=== PATIENT | female | born 1945 | race Caucasian/White ===

== ENCOUNTER 2019-11-05 14:15 | Outpatient (CLI) | payer MEDICARE, SELFPAY ==
[2019-11-05 14:46] LABS: Add Urine Microscopic? YES; Appearance Urine Clear (Clear); Bacteria Urine Trace /hpf; Bilirubin Urine Negative (Negative); Blood Urine Negative (Negative); Color Urine Yellow (Yellow); Glucose Urine UA Negative (Negative); Ketones Urine Trace mg/dL (Negative); Leukocyte Esterase Ur 1+ LEU/UL (NEGATIVE); Mucus Urine Rare /lpf; Nitrate Urine Negative (Negative); Protein Urine Negative (Negative); RBC Urine 0-2 /hpf (0-2); Specific Grav Ur 1.017 (1.001-1.035); Squamous Epithelial Cell Urine Occasional /hpf (Few); Urobilinogen Urine Negative mg/dL (<2.0)
[2019-11-05 14:53] LABS: Alanine Aminotransferase 19 U/L (4-35); Albumin Level 4.6 g/dL (3.5-5.1); Alkaline Phosphatase 105 U/L (38-126); Aspartate Amino Transferase 33 U/L (14-36); Bilirubin,Total 0.4 mg/dL (0.2-1.3); Blood Urea Nitrogen 14 mg/dL (7-17); Calcium 9.5 mg/dL (8.4-10.2); Carbon Dioxide 30 mmol/L (22-30); Chloride 103 mmol/L (98-107); Estimated Glomerular Filt Rate > 60; Glucose 95 mg/dL (65-105); Potassium 3.9 mmol/L (3.4-5.0); Sodium 139 mmol/L (137-145)
[2019-11-05 15:11] LABS: Rheumatoid Factor < 8.6 IU/ML (<12)
== END 2019-11-05 14:16 | disposition home or self-care (01) ==
PROVIDERS: PCP Physician Assistant; Visit Provider Physician Assistant
DX: R10.9 Unspecified abdominal pain (principal); E11.9 Type 2 diabetes mellitus without complications; M25.50 Pain in unspecified joint
CPT/HCPCS: 36415; 80053; 81001; 86430; 87086; 87088

== ENCOUNTER 2020-03-09 13:06 | Outpatient (CLI) | payer MEDICARE, SELFPAY ==
--- NOTE | ~2020-03-09 | US_ITS ---
EXAMINATION: US renal BI DATE: 03/09/2020 14:18 INDICATION: Bilateral flank pain TECHNIQUE: Multiple grayscale and Doppler ultrasound images of the kidneys were obtained. COMPARISON: None. FINDINGS: The right kidney measures 9.4 0.0 x 4.2 cm. The left kidney measures 8.9 x 5.6 x 5.0 cm. Th e kidneys demonstrate normal parenchymal echogenicity. There is no hydronephrosis. The bladder is nor mal. IMPRESSION: 1. Normal kidneys without hydronephrosis. Reviewed, dictated and finalized at location A.
== END 2020-03-09 13:07 | disposition home or self-care (01) ==
LOC: ANHIMG 13:07
PROVIDERS: PCP Physician Assistant; Visit Provider Physician Assistant
DX: R10.9 Unspecified abdominal pain (principal)
CPT/HCPCS: 76775

== ENCOUNTER 2021-02-01 08:11 | Outpatient (CLI) | payer MEDICARE, SELFPAY ==
--- NOTE | ~2021-02-01 | MR_ITS ---
EXAMINATION: MR shoulder RT wo con DATE: 02/01/2021 09:00 INDICATION: Right shoulder pain TECHNIQUE: Magnetic resonance imaging (MRI) of the right shoulder was performed without intravenous c ontrast. Sequences included axial PD-weighted FS FSE, coronal oblique PD-weighted FS FSE, coronal obl ique T2-weighted FS FSE, sagittal PD-weighted FS FSE, and sagittal T1-weighted SE. COMPARISON: None. FINDINGS: Coracoacromial arch: The acromion undersurface is curved in morphology (type II). The coracoacromial ligament is normal. M ild acromioclavicular osteoarthritis. Rotator cuff: Mild supraspinatus and infraspinatus tendinopathy. There is attenuation of the distal 2.5 cm of the s upraspinatus tendon with poorly defined partial thickness tears along both the bursal and articular s ides of the tendon. No full-thickness tear defect identified. Mild to moderate subscapularis tendinop athy with small longitudinal split tear at the cephalad aspect of the tendon occurring between the po rtion of the tendon attached to the cephalad aspect of the lesser tuberosity and the bursal sided por tion of the tendon which remains contiguous with the intact transverse humeral ligament. The teres mi nor tendon is normal. There is mild atrophy of the supraspinatus muscle belly with concave cephalad m argin at the level of the supraspinatus fossa but without appreciable fatty infiltration. Biceps tendon, glenoid labrum and glenohumeral cartilage: Mild tendinopathy of the long head of the biceps tendon. The tendon appears attenuated cyst with part ial tear at the junction of the intra-articular and extra articular portion of the tendon where it is subluxed across the cephalad aspect of the medial rim of the intertubercular groove and into the sma ll subscapularis split tear defect. There is a tear at the 12:00-11:00 position of the superior gleno id labrum. Partial-thickness cartilage loss involving greater than 50% the cartilage thickness with s mooth chondral surface and without degenerative subchondral changes at the cephalad half of the gleno id. Mild subarticular cystic changes along the anteroinferior and posterior inferior rim of the gleno id. Additional diffuse mild partial-thickness cartilage loss along the humeral head with small margin al osteophytes at the anteroinferior margin of the articular surface. Fluid: Small amount of fluid in the long head biceps tendon sheath disproportionate to the physiologic amoun t of fluid in the glenohumeral joint consistent with mild bicipital tenosynovitis. No loose osteochon dral bodies. Small amount of fluid in the subacromial/subdeltoid bursa consistent with mild bursitis. Bones: Normal marrow signal. No fracture or pathologic marrow replacing process. Moderate cystic changes at the greater tuberosity likely related to chronic rotator cuff disease. IMPRESSION: 1. Mild supraspinatus and infraspinatus tendinopathy with ill-defined mild articular and bursal sided tears resulting in attenuation of the distal 2.5 cm of the supraspinatus tendon but without focal fu ll-thickness tear. 2. Mild right glenohumeral osteoarthritis with tear at the superior glenoid labrum. 3. Mild bicipital tenosynovitis and mild tendinopathy and partial thickness tear at the junction of t he intra-articular and extra-articular portion of the tendon is subluxed across the cephalad medial r im of the lesser tuberosity and into a small longitudinal split tear defect of the cephalad subscapul laura tendon. 4. Mild acromion clavicular osteoarthritis with mild underlying subacromial/subdeltoid bursitis. Reviewed, dictated and finalized at location A. IMPRESSION: 1. Mild supraspinatus and infraspinatus tendinopathy with ill-defined mild letitia cular and bursal sided tears res
== END 2021-02-01 08:12 | disposition home or self-care (01) ==
PROVIDERS: PCP Physician Assistant; Visit Provider Orthopaedic Surgery
DX: M19.011 Primary osteoarthritis, right shoulder (principal); M75.21 Bicipital tendinitis, right shoulder
CPT/HCPCS: 73221

== ENCOUNTER 2021-03-15 09:17 | Outpatient (CLI) | payer MEDICARE, SELFPAY ==
[2021-03-15 10:08] LABS: Anion Gap 7 mmol/L (8-16); Blood Urea Nitrogen 20 mg/dL (7-17); Calcium 9.7 mg/dL (8.4-10.2); Carbon Dioxide 27 mmol/L (22-30); Chloride 105 mmol/L (98-107); Estimated Glomerular Filt Rate > 60; Glucose 100 mg/dL (65-110); Potassium 5.4 mmol/L (3.4-5.0); Sodium 139 mmol/L (137-145)
== END 2021-03-15 09:18 | disposition home or self-care (01) ==
LOC: ANHSURGERY 09:23
PROVIDERS: Anesthesiology; PCP Physician Assistant; Visit Provider Orthopaedic Surgery
DX: Z01.812 Encounter for preprocedural laboratory examination (principal); E11.9 Type 2 diabetes mellitus without complications
CPT/HCPCS: 36415; 80048

== ENCOUNTER → 2021-03-17 01:45 | Outpatient (CLI) | payer MEDICARE, SELFPAY ==
[2021-03-17 19:29] LABS: SARS-CoV-2 RNA PCR Negative
== END ==
PROVIDERS: PCP Physician Assistant; Visit Provider Orthopaedic Surgery
DX: Z01.812 Encounter for preprocedural laboratory examination (principal); Z20.822 Contact with and (suspected) exposure to COVID-19
CPT/HCPCS: C9803; U0003; U0005

== ENCOUNTER 2021-03-21 00:42 | Day surgery (SDC) | payer MEDICARE, SELFPAY ==
[2021-03-13 11:00] VITALS: BMI 26.6
--- NOTE | 2021-03-20 14:46 | WPDANESEPPF ---
Anes - Initial Pre Proc Eval Procedure: Operation Date: 03/21/21 07:30 Proposed Procedures p Right Rotator Cuff Repair - Jose Juan Osorio MD Date/Time: 03/20/21 14:46 Surgeon: Jose Juan Osorio MD Pre Op Diagnosis: right rotator cuff tear Patient Data Age: 75 Gender: F Height: 1.52 m Weight: 62 kg Allergies Allergy/AdvReac Type Severity Reaction Status Date / Time amlodipine AdvReac Intermediate Weakness, Verified 03/21/21 06:28 INCREASED HR hydrochlorothiazide AdvReac Intermediate palpatations/MUSC Verified 03/21/21 06:28 SPASMS Sulfa (Sulfonamide AdvReac Intermediate Nausea and Verified 03/21/21 06:28 Antibiotics) Vomiting trimethoprim AdvReac Intermediate Nausea and Verified 03/21/21 06:28 Vomiting terazosin AdvReac Mild Nausea and Verified 03/21/21 06:28 Vomiting Home Medications Medication Instructions Recorded Confirmed Type lactobacillus combination no.4 3 3,000 mmu cells PO DAILY 07/23/19 03/21/21 History billion cell capsule lancets 31 gauge #100 each 11/30/19 02/12/21 Rx blood sugar diagnostic #100 each 04/05/20 02/12/21 Rx albuterol sulfate 90 mcg/actuation 2 puff INHALATION Q4-6H PRN #8.5 gm 04/14/20 03/21/21 Rx aerosol inhaler ibandronate 150 mg tablet 150 mg PO MONTHLY #3 tablet 05/08/20 03/21/21 Rx metformin 500 mg tablet,extended 500 mg PO BID #180 tablet 05/08/20 03/21/21 Rx release 24 hr spironolactone 25 mg tablet 12.5 mg PO BID tablet 10/24/20 03/21/21 History rabeprazole 20 mg tablet,delayed 20 mg PO BID #180 tablet 11/08/20 03/21/21 Rx release cyclobenzaprine 10 mg tablet 10 mg PO .QHS PRN #90 tablet 11/27/20 03/21/21 Rx chlorhexidine gluconate 4 % 1 applic TOPICAL ONCE #237 ml 02/14/21 03/21/21 Rx topical liquid cyanocobalamin (vitamin B-12) 1,000 mcg IM MONTHLY #1 ml 03/08/21 03/21/21 Rx 1,000 mcg/mL injection solution albuterol sulfate 2.5 mg INHALATION Q6H PRN 03/13/21 03/21/21 History benazepril 20 mg PO BID 03/13/21 03/21/21 History dicyclomine 10 mg PO QID PRN 03/13/21 03/21/21 History diphenoxylate-atropine 1 tablet PO QID PRN 03/13/21 03/21/21 History ezetimibe 10 mg PO DAILY 03/13/21 03/21/21 History magnesium oxide 800 mg PO QHS 03/13/21 03/21/21 History nebivolol [Bystolic] 4 mg PO DAILY PRN 03/13/21 03/21/21 History potassium 99 mg PO DAILY PRN 03/13/21 03/21/21 History sucralfate 30 ml PO QID 03/13/21 03/21/21 History Patient hx anesthesia problems: none Family hx anesthesia problems: none PMFSH Past Medical History Medical History (Updated 03/20/21 @ 14:48 by Rickie Stanford MD) Asthma Chronic GERD Diabetes mellitus HTN (hypertension) Hypercholesterolemia LAURA (obstructive sleep apnea) Osteoarthritis Overweight (BMI 25.0-29.9) Right shoulder pain Surgical History Surgical History H/O partial thyroidectomy Family History Family History Sibling Hypertension Family history of heart disease in male family member before age 55, Onset Age: 68 Patient's brother is Acute myocardial infarction, Onset Age: 667 Cerebrovascular accident Patient's brother is in good health Family history of Alzheimer's disease Family history of dementia Father Family history of heart disease in male family member before age 55, Onset Age: 83 Patient's father is Carcinoma of colon Mother Patient's mother is Family history of malignant melanoma, Onset Age: 52 Grandparent Cerebrovascular accident Other Diabetes mellitus Family history of alcoholism Family history of cardiovascular disease Social History Social History Smoking status: Never smoker Second hand tobacco smoke exposure: No Alcohol intake: former Alcohol use details: SOCIALLY IN PAST Substance use: never Living arrangements: alone
[2021-03-21] VITALS (12 sets, daily range): BP systolic 98–134; BP diastolic 46–92; PULSE 50–73; RESP 12–16; TEMP 36.2–36.5; O2SAT 94–100
[2021-03-21] MEDS: ACETAMINOPHEN 500 MG TABLET 1000 MG PO (06:36)
[2021-03-21] MEDS: CELECOXIB 200 MG CAPSULE PO (06:37)
[2021-03-21] MEDS: LACTATED RINGERS 1,000 ML 30 ML IV CONT ×2 (06:44→09:10)
[2021-03-21 06:50] LABS: Glucose Point of Care 98 mg/dl (65-105)
--- NOTE | 2021-03-21 06:53 | WPDANESPNB ---
Anes - Peripheral Nerve Block Date/Time: 03/21/21 06:53 I have discussed with the patient/family/POA the placement of a peripheral nerve block for post-operative pain management, including associated risks, benefits, complications, and side effects. Alternative methods of post-operative analgesia were detailed. Questions were solicited and answers provided to the satisfaction of the patient/family/POA. Time-Out: A pre-procedural Time-Out was completed immediately before starting the procedure and confirmed: Patient Identification, Site, Procedure, Patient Position and the Availability of Requisite Equipment. Clinical Indications: Acute post-operative pain management requested by the operative surgeon. Nerve Block Insertion Note Anes-nerve block: supraclavicular right Patient position: supine Skin prep: chlorhexidine Needle: 22 gauge, stimulating, insulated echogenic needle. Needle length: 80 mm Technique: ultrasound (in plane) Injectate: bupivacaine 0.5% with epi 5 mcg/ml (20cc) Observations: tolerated well Complications: none Procedure start time:: 725 Procedure end time:: 730
--- NOTE | 2021-03-21 07:23 | WPDHPUPDATE1 ---
History and Physical Update Update Date/Time: 03/21/21 07:23 History and Physical has been reviewed, including an updated exam of the patient. There are NO changes in the patient's condition. Risks, benefits, and alternatives have been discussed and questions answered. Patient agrees to proceed with procedure.
[2021-03-21] MEDS: ceFAZolin 2 GM/D5W 50 ML 2 GM/50 ML BAG IVPB (07:42)
--- NOTE | 2021-03-21 09:12 | W.PM.PROC2 ---
Procedure Note - Detailed Date of Procedure 03/21/21 Pre-op Diagnosis right rotator cuff tear Post-op Diagnosis same Procedure Performed REPAIR RIGHT ROTATOR CUFF Surgeon Jose Juan Osorio MD Anesthesia general Description of Procedure THE PATIENT WAS TAKEN TO THE OPERATING ROOM AND THEN INTUBATED AND PLACED IN THE BEACH CHAIR POSITION. THE RIGHT UPPER EXTREMITY WAS PREPPED AND DRAPED IN THE NORMAL STERILE FASHION. AN INCISION WAS MADE IN BETWEEN THE NASREEN-LATERAL ACROMION AND THE AC JOINT. THE FASCIA WAS IDENTIFIED. NEXT A MINI OPEN INCISION WAS MADE THROUGH THE DELTOID MUSCLE EXPOSING THE SUBACROMIAL SPACE. A LIMITED ACROMIOPLASTY WAS PREFORMED. THE ROTATOR CUFF WAS IDENTIFIED. THERE WAS A FULL THICKNESS TEAR. IT MEASURED APPROXIMATELY 2 CM X 2 CM. THE GREATER TUBEROSITY WAS DEBRIDED TO BLEEDING BONE. 2 ARTHREX 5.5 SUTURE ANCHORS WERE PLACED IN TO GOOD BONE AND HAD VERY GOOD BITES. COREY-JOÃO TYPE REPAIRS WERE DONE TO THE ROTATOR CUFF AND THERE WAS GOOD APPROXIMATION TO THE GREATER TUBEROSITY. THE REPAIR WAS EXCELLENT. THERE WAS NO IMPINGEMENT ON THE REPAIR FROM THE ACROMION WITH RANGE OF MOTION. THE WOUND WAS IRRIGATED WITH COPIOUS AMOUNTS OF ANTIBIOTIC SOLUTION. THE DELTOID MUSCLE WAS REPAIRED WITH #2 FIBER WIRE AND 0 VICRYL SUTURE. THE SUBCUTANEOUS LAYER WAS APPROXIMATED WITH 2-0 VICRYL. THE SKIN WAS APPROXIMATED WITH 3-0 QUIL AND DERMABOND. STERILE DRESSING WAS APPLIED. PATIENT WAS EXTUBATED. Estimated Blood Loss 20 Complications No immediate complications Condition stable Disposition PACU
[2021-03-21] MEDS: fentaNYL CITRATE INJ (*CRX) 100 MCG/2 ML VIAL 25 MCG IV PUSH (09:50)
[2021-03-21] MEDS: oxyCODONE HCL (*CRX) 5 MG TAB IR PO (10:33)
[2021-03-21] MEDS: ONDANSETRON INJ 4 MG/2 ML VIAL IV PUSH (11:15)
[2021-03-21] MEDS: SCOPOLAMINE 1.5 MG PATCH TRANSDERM (11:35)
[2021-03-22 16:16] LABS: Glucose Point of Care 119 mg/dl (65-105)
== END 2021-03-21 12:35 | disposition home or self-care (01) ==
PROVIDERS: PCP Physician Assistant; Visit Provider Orthopaedic Surgery
PROC: (CPT 23420; principal; 2021-03-21 07:30)
DX: M75.101 Unspecified rotator cuff tear or rupture of right shoulder, not specified as traumatic (principal); G89.18 Other acute postprocedural pain; I10 Essential (primary) hypertension; E11.9 Type 2 diabetes mellitus without complications; E78.00 Pure hypercholesterolemia, unspecified; J45.909 Unspecified asthma, uncomplicated; G47.33 Obstructive sleep apnea (adult) (pediatric); K21.9 Gastro-esophageal reflux disease without esophagitis; E66.9 Obesity, unspecified; Z68.27 Body mass index [BMI] 27.0-27.9, adult; Z79.51 Long term (current) use of inhaled steroids; Z79.84 Long term (current) use of oral hypoglycemic drugs
CPT/HCPCS: 23420; 64415; 36415; 80048; 82948; A9270; C9803; J0690; J1100; J2250; J2405; J2704; J2710; J3010; J7120; U0003; U0005

== ENCOUNTER → 2021-07-14 09:10 | Outpatient (CLI) | payer MEDICARE, SELFPAY ==
[2021-07-15 16:24] LABS: SARS-CoV-2 RNA PCR Positive
== END ==
PROVIDERS: PCP Physician Assistant; Visit Provider Physician Assistant
DX: U07.1 COVID-19 (principal)
CPT/HCPCS: C9803; U0003; U0005

== ENCOUNTER 2021-11-27 08:14 | Outpatient (CLI) | payer MEDICARE, SELFPAY ==
[2021-11-27 08:53] LABS: Anion Gap 6 mmol/L (8-16); Blood Urea Nitrogen 13 mg/dL (7-17); Calcium 8.4 mg/dL (8.4-10.2); Carbon Dioxide 25 mmol/L (22-30); Chloride 106 mmol/L (98-107); Estimated Glomerular Filt Rate > 60; Glucose 102 mg/dL (65-110); Potassium 4.3 mmol/L (3.4-5.0); Sodium 137 mmol/L (137-145)
== END 2021-11-27 08:15 | disposition home or self-care (01) ==
LOC: ANHSURGERY 08:19
PROVIDERS: Anesthesiology; PCP Physician Assistant; Visit Provider Orthopaedic Surgery
DX: E11.9 Type 2 diabetes mellitus without complications (principal); Z01.818 Encounter for other preprocedural examination
CPT/HCPCS: 36415; 80048

== ENCOUNTER 2021-11-30 00:22 | Day surgery (SDC) | payer MEDICARE, MEDICAID, SELFPAY ==
[2021-11-26 10:47] VITALS: BMI 30.5
--- NOTE | 2021-11-26 10:54 | PC.NURSE ---
Report to the Outpatient Waiting Room, entrance under the green pavilion located off [facility], at time _0800_ on date _11/30/21_. OR Time: _1000_. - You and your visitor will be asked a series of questions to screen for COVID 19 for your protection. - Only one visitor is allowed at this time. - The patient visitor is requested to leave or wait in car when not with patient. - A mask is required within the hospital. Patients may have clear liquids (water, carbonated beverages, clear teas, apple juice) until 3 hours prior to surgery (0700 AM) with a maximum of 20 ounces. - No food from midnight until time of surgery Take the following medications with a SIP of water the morning of surgery: _ATENOLOL, PAIN PILL & INHALER IF NEEDED_ Medications to discontinue per physician _PT STATES STOPPING ASPIRIN 11/23/21, PER ANESTHESIA VITAMINS/SUPPLEMENTS 3 DAYS PRIOR TO SURGERY, Date to take last dose 11/26/21_ Please no make-up, nail kinyarwanda, hairspray, perfume, deodorant, or body powder the day of surgery. No jewelry (including any body piercings) or valuables the day of surgery, leave them at home. Please take a shower or bath the night before, or the morning of, surgery with an antibacterial soap. Wear comfortable, loose fitting clothing. - Jewelry must be removed prior to entering the operating room. Rings and piercings that are not removed may be cut off. - The hospital will not accept responsibility for valuables. - Please leave all valuables, including medications, at home the day of surgery. If you are going home after surgery, a licensed trash truck driver must drive you home. - NO public transportation without another adult. - We recommend that an adult stay with you for 24 hours following discharge. - We also recommend that you do not drive, make important decision, drink alcoholic beverages, or take any drugs that were not prescribed by your health care provider for at least 24 hours after your discharge time. Follow any additional instructions given to you from your surgeon. If you or anyone in your household have experienced Covid symptoms in the past week, please notify your surgeon or the nurse liaison at the phone number below for possible testing. Telephone instructions given to _PT_and asked if any additional questions and then verbalized understanding. Patient advised to call surgeon office or pre surgery nurse liaison [phone] if any additional questions.
[2021-11-30] VITALS (12 sets, daily range): BP systolic 110–144; BP diastolic 57–85; PULSE 55–80; RESP 10–18; TEMP 35.9–36.2; O2SAT 93–99
[2021-11-30] MEDS: LACTATED RINGERS 1,000 ML 30 ML IV CONT ×2 (06:35→10:19)
[2021-11-30] MEDS: KETOROLAC 15 MG/ML VIAL (*BKC) IV PUSH (06:37)
[2021-11-30] MEDS: ACETAMINOPHEN 500 MG TABLET 1000 MG PO (06:37)
[2021-11-30 06:44] LABS: Glucose Point of Care 109 mg/dl (65-105)
--- NOTE | 2021-11-30 07:02 | WPDANESEPPF ---
Anes - Initial Pre Proc Eval Procedure: Operation Date: 11/30/21 07:30 Proposed Procedures p Left Arthroscopic, Rotator Cuff Repair Distal Clavicle Excision, Acromioplasty, Biceps Tenodesis - Houston Chowdary MD Date/Time: 11/30/21 07:02 Surgeon: Houston Chowdary MD Pre Op Diagnosis: left complete rotator cuff tear Patient Data Age: 76 Gender: F Height: 1.52 m Weight: 68.8 kg Allergies Allergy/AdvReac Type Severity Reaction Status Date / Time amlodipine AdvReac Intermediate Weakness, Verified 11/30/21 06:46 INCREASED HR hydrochlorothiazide AdvReac Intermediate palpatations/MUSC Verified 11/30/21 06:46 SPASMS Sulfa (Sulfonamide AdvReac Intermediate Nausea and Verified 11/30/21 06:46 Antibiotics) Vomiting trimethoprim AdvReac Intermediate Nausea and Verified 11/30/21 06:46 Vomiting terazosin AdvReac Mild Nausea and Verified 11/30/21 06:46 Vomiting Home Medications Medication Instructions Recorded Confirmed Type lancets 31 gauge #100 ea 11/30/19 11/30/21 Rx dicyclomine 10 mg capsule 10 mg PO QID PRN Diarrhea 03/13/21 11/30/21 History diphenoxylate-atropine 2.5 1 tablet PO QID PRN Diarrhea 03/13/21 11/30/21 History mg-0.025 mg tablet ezetimibe 10 mg tablet 10 mg PO DAILY 03/13/21 11/30/21 History magnesium oxide 800 mg PO QHS 03/13/21 11/30/21 History sucralfate 100 mg/mL oral 30 ml PO QID PRN Stomach Upset 03/13/21 11/30/21 History suspension blood sugar diagnostic (OneTouch #100 ea 04/30/21 11/30/21 Rx Verio test strips) benazepril 40 mg tablet 40 mg PO BID 07/26/21 11/30/21 History furosemide 40 mg tablet 20 mg PO QAM #90 tabs 07/26/21 11/30/21 Rx cyanocobalamin (vitamin B-12) 1,000 mcg IM MONTHLY #1 mL 09/06/21 11/30/21 Rx 1,000 mcg/mL injection solution cyclobenzaprine 10 mg tablet 10 mg PO .QHS PRN muscle spasm #90 09/26/21 11/30/21 Rx tabs blood-glucose meter (OneTouch See Rx Instructions .Route 10/05/21 11/30/21 Rx Verio Reflect Meter) .COMPLEX #1 ea aspirin 81 mg tablet,delayed 81 mg PO DAILY 10/16/21 11/30/21 History release (Adult Aspirin Regimen) meclizine 25 mg tablet 25 mg PO TID PRN dizziness #30 tabs 10/22/21 11/30/21 Rx metformin 500 mg tablet 500 mg PO BID 10/23/21 11/30/21 History rabeprazole 20 mg tablet,delayed See Rx Instructions .Route 11/14/21 11/30/21 Rx release (AcipHex) .COMPLEX #180 tabs hydrocodone 5 mg-acetaminophen 325 1 tablet PO Q12H PRN pain #15 tabs 11/15/21 11/30/21 Rx mg tablet albuterol sulfate 2.5 mg inhalation Q6H PRN 11/26/21 11/30/21 History Shortness Of Breath amoxicillin 875 mg-potassium 1 tablet PO Q12H 11/26/21 11/30/21 History clavulanate 125 mg tablet atenolol 25 mg tablet 25 mg PO BID 11/26/21 11/30/21 History budesonide-formoterol HFA 160 2 puff inhalation Q12H PRN 11/26/21 11/30/21 History mcg-4.5 mcg/actuation aerosol Shortness Of Breath inhaler (Symbicort) ibandronate 150 mg tablet (Boniva) 150 mg PO MONTHLY 11/26/21 11/30/21 History Laboratory Tests 11/30/21 06:34 POC Capillary Glucose 109 mg/dl H mg/dl (65-105) Patient hx anesthesia problems: none Family hx anesthesia problems: none Results Review: All pre-operative results and documents have been reviewed as part of the pre-operative evaluation. [facility] Past Medical History Medical History Asthma Chronic GERD Diabetes mellitus History of stress test (~2020) HTN (hypertension) Hypercholesterolemia LAURA (obstructive sleep apnea) Osteoarthritis Overweight (BMI 25.0-29.9) Right shoulder pain Surgical History Surgical History (Updated 11/30/21 @ 07:03 by Jamar Madrid DO) H/O partial thyroidectomy History of sleeve gastrectomy S/P rotator cuff repair Family History Family History Sibling Hypertension Family history of heart disease in male family member before age 55,
--- NOTE | 2021-11-30 07:05 | WPDANESPNB ---
Anes - Peripheral Nerve Block Date/Time: 11/30/21 07:05 I have discussed with the patient/family/POA the placement of a peripheral nerve block for post-operative pain management, including associated risks, benefits, complications, and side effects. Alternative methods of post-operative analgesia were detailed. Questions were solicited and answers provided to the satisfaction of the patient/family/POA. Time-Out: A pre-procedural Time-Out was completed immediately before starting the procedure and confirmed: Patient Identification, Site, Procedure, Patient Position and the Availability of Requisite Equipment. Clinical Indications: Acute post-operative pain management requested by the operative surgeon. Nerve Block Insertion Note Anes-nerve block: interscalene left Patient position: supine Skin prep: chlorhexidine Needle: 22 gauge, stimulating, insulated echogenic needle. Needle length: 50 mm Technique: ultrasound Injectate: bupivacaine 0.5% with epi 5 mcg/ml (30cc- no epi) Observations: tolerated well Complications: none Procedure start time:: 729 Procedure end time:: 734
--- NOTE | 2021-11-30 07:06 | WPDHPUPDATE1 ---
History and Physical Update Update Date/Time: 11/30/21 07:06 History and Physical has been reviewed, including an updated exam of the patient. There are NO changes in the patient's condition. Risks, benefits, and alternatives have been discussed and questions answered. Patient agrees to proceed with procedure.
[2021-11-30] MEDS: ceFAZolin 2 GM/D5W 50 ML 2 GM/50 ML BAG IVPB (07:33)
[2021-11-30 12:11] LABS: Glucose Point of Care 115 mg/dl (65-105)
--- NOTE | 2021-11-30 13:27 | SUR.PHASEII ---
1326- Call to Dr. Grigsby patient experiencing nausea at this time and IV discontinued for discharge home. Per Dr. Grigsby can give zofran 4MG sublingual once. Orders placed and will administer. See MAR.
[2021-11-30] MEDS: ONDANSETRON HCL ODT 4 MG TABLET PO (13:30)
--- NOTE | 2021-11-30 13:35 | SUR.PHASEII ---
8813- Call to Dr. Chowdary due to patient experiencing nausea and patient requesting zofran prescription be sent to her pharmacy for use at home. Per Dr. Chowdary he will place orders for patient.
--- NOTE | 2021-11-30 16:05 | P.OP_ITS ---
Procedure Note - Detailed Date of Procedure 11/30/21 Pre-op Diagnosis Left shoulder 1. Rotator cuff tear, full thickness 2. Subacromial impingement 3. Biceps tendinosis 4. A/C joint arthritis Post-op Diagnosis Same (1. Rotator cuff tear 2. Subacromial impingement 3. Biceps tendinosis 4. Degenerative labral tear) Procedure Performed Right shoulder 1. Arthroscopic rotator cuff repair 2. Arthroscopic subacromial decompression 3. Arthroscopic biceps tenodesis 4. Arthroscopic distal clavicle excision Surgeon Houston Chowdary MD Head Strength And Conditioning Coach Radha Nieves PA-C Anesthesia General and Regional ( interscalene block) Description of Procedure Preoperative antibiotics were given. An interscalene block was administered in the preoperative area. The patient was bought brought to the operating room. A general anesthetic was administered. The patient was carefully positioned in t he beach chair position. The head and neck were carefully positioned. The non operative extremity was also carefully positioned. The shoulder was prepped and draped in the usual sterile fashion. Examination was performed. Standard posterior and anterior arthroscopic portals were established. Inflow achieved with the arthroscopic pump using saline and epinephrine. The glenohumeral joint was carefully inspected. The glenohumeral joint showed mild degenerative changes primarily on the humerus. The subscapularis was intact. There was a small to medium-sized, non retracted tear of the supraspinatus. The biceps had partial rupture. The biceps was released for later tenodesis. Minimal gentle chondroplasty on the humerus. Attention was turned to the subacromial space. A complete bursectomy was performed. The rotator cuff and footprint were lightly debrided. A modest acromioplasty was performed. The tear configuration was carefully assessed. At this point, 2 tunnels were created at the rotator cuff. The ArthroTunneler technique was utilized. Three sutures were passed through each tunnel. All sutures were then passed through the cuff tissue. The sutures were tied arthroscopically. Attention was then turned to the biceps tendon. The sheath was opened and cauterized. The floor was roughened with the arthroscopic rasp. A tunnel was created with the tunneling device. Two Orthocord sutures were used for repair. The sutures were looped around the biceps then the locking loop suture passed through the tendon. The repair was quite olson. Attention was then turned to the distal clavicle which was excised through a separate incision using the arthroscopic bur. Approximately 10 mm of bone was resected. The arthroscopic instruments were removed. The wounds were closed with 3-0 Monocryl subcuticular suture and steri strips. There were no complications. A sling was applied and the patient brought to the recovery room. Physician bilingual executive assistant, Radha Nieves PA-C, required for surgery; including patient positioning, draping, arthroscopic camera operation, maintaining instrument position, suture retrieval, wound closure, and dressing and sling placement. Estimated Blood Loss 20 Pathology None sent Complications No immediate complications Condition Stable Disposition PACU [facility] Billing Surgery - Charge Forward: Surgery Billing
== END 2021-11-30 13:39 | disposition home or self-care (01) ==
PROVIDERS: PCP Physician Assistant; Visit Provider Orthopaedic Surgery
PROC: (CPT 29805; principal; 2021-11-30 07:30)
DX: M75.122 Complete rotator cuff tear or rupture of left shoulder, not specified as traumatic (principal); M75.42 Impingement syndrome of left shoulder; M75.82 Other shoulder lesions, left shoulder; M75.22 Bicipital tendinitis, left shoulder; G89.18 Other acute postprocedural pain; J45.909 Unspecified asthma, uncomplicated; E11.9 Type 2 diabetes mellitus without complications; K21.9 Gastro-esophageal reflux disease without esophagitis; I10 Essential (primary) hypertension; E78.00 Pure hypercholesterolemia, unspecified; G47.33 Obstructive sleep apnea (adult) (pediatric); Z98.84 Bariatric surgery status; Z79.84 Long term (current) use of oral hypoglycemic drugs; Z79.82 Long term (current) use of aspirin; Z79.51 Long term (current) use of inhaled steroids
CPT/HCPCS: 29827; 29828; 29826; 29824; 64415; 36415; 80048; 82948; A4565; A9270; J0690; J1100; J1885; J2405; J2704; J7120

== ENCOUNTER 2022-01-04 11:45 | Emergency (ER) | payer MEDICARE, MEDICAID, SELFPAY ==
[2022-01-04] VITALS (17 sets, daily range): BP systolic 115–150; BP diastolic 59–80; PULSE 61–72; RESP 16–22; TEMP 36.2; O2SAT 93–98
--- NOTE | ~2022-01-04 | CT_ITS ---
EXAMINATION: CT cervical spine wo con DATE: 01/04/2022 12:58 INDICATION: Trauma. Generalized neck pain for 2 days. TECHNIQUE: Computed tomography (CT) of the cervical spine was performed without intravenous contrast. Automated exposure control and iterative reconstruction technique were employed. Exam dose: 335.55 mGy-cm total exam DLP. COMPARISON: 08/11/2012 MR cervical spine FINDINGS: There is levoscoliosis of the cervical spine. C1 and C2 are normally aligned and the odontoid process is intact. No fracture or dislocation or lock ed facet or prevertebral soft tissue swelling. There is mild degenerative disc disease and minimal retrolisthesis at C4-5. There is moderately severe degenerative disc disease at C5-6. There is moderate degenerative disc dis ease at C6-7. There is slight anterolisthesis at C7-T1. There is degenerative change of the apophyseal joints throughout the cervical spine. There is uncovertebral joint spurring of the mid and lower cervical spine, most prominent on the righ t at C4-5 and bilaterally at C5-6. Incidentally noted is patchy groundglass density in the upper lung zones. Right thyroid goiter. No cervical mass lesion or lymphadenopathy is detected. Prominent soft tissue thickening of the left sphenoid sinus, patchy soft tissue thickening of the eth moid air cells. IMPRESSION: Levoscoliosis Cervical spondylosis No fracture or dislocation or locked facet Reviewed, dictated and finalized at Location A. Reviewed, dictated and finalized at location B.
--- NOTE | ~2022-01-04 | XR_ITS ---
EXAMINATION: XR chest 2V DATE: 01/04/2022 13:03 INDICATION: Right-sided chest pain TECHNIQUE: AP and lateral views of the chest are obtained. COMPARISON: 10/23/2015 FINDINGS: The lungs are free of acute opacities. No pleural effusion or pneumothorax. The cardiomedia stinal silhouette is normal. There is severe thoracic spondylosis. IMPRESSION: 1. No acute cardiopulmonary abnormality. Reviewed, dictated and finalized at location F.
--- NOTE | ~2022-01-04 | CT_ITS ---
EXAMINATION: CTA chest PE protocol DATE: 01/04/2022 15:25 INDICATION: Chest pain with deep inspiration. Right-sided chest and arm pain TECHNIQUE: Computed tomography angiography (CTA) of the chest was performed with 100 mL Omnipaque-350 intravenous contrast timed to evaluate the pulmonary arteries. Coronal maximum intensity projection 3D-reconstructions were created by the technologist. Automated exposure control and iterative reconst ruction technique were employed. Exam dose: 517.38 mGy-cm total exam DLP. COMPARISON: 01/04/2022 AP and lateral chest FINDINGS: There is diagnostic contrast enhancement of the pulmonary arteries and no evidence of pulmo nary embolus. There is a in the right ventricle and pulmonary outflow tract. No thoracic aortic aneurysm or dissection. There is thoracic aortic calcification. Normal heart size. No pericardial effusion. No pleural effusion. No hilar or mediastinal mass lesion or lymphadenopathy. Prominent discoid atelectasis and/or scarring is noted in the lower lobes, right greater than left an d to a lesser extent the lingula. No pleural effusion. Status post cholecystectomy. Normal morphology of the adrenal glands. No suspicious osteolytic or osteoblastic lesions. IMPRESSION: No evidence of pulmonary embolus Area in the right ventricle and pulmonary outflow tract Prominent discoid atelectasis and/or scarring in the lower lobes and to a lesser extent lingula Reviewed, dictated and finalized at Location [facility]. Reviewed, dictated and finalized at location A. IMPRESSION: No evidence of pulmonary embolus Area in the right ventricle and pulmonary outflow tract Prominent discoid atelectasis and/or scarring in the lower lobes and to a lesse r extent lingula
--- NOTE | 2022-01-04 11:51 | ECG_ITS ---
Measurements Intervals [place] Rate: 68 P: 33 IA: 197 QRS: 28 QRSD: 92 T: 9 QT: 417 QTc: 445 Interpretive Statements SINUS RHYTHM MINIMAL Q WAVES- INFERIOR LEADS BASELINE ARTIFACT- I, III, AVL BORDERLINE ECG Electronically Signed On 01-04-2022 12:01:41 CDT by Hal Campbell D.O.
[2022-01-04 12:15] LABS: Basophils Percent Auto 0.5 % (0.2-1.2); Eosinophils Absolute Auto 0.1 K/mm3 (0-0.3); Eosinophils Percent Auto 2.1 % (0-4.4); Hematocrit 37.9 % (37.0-47.0); Hemoglobin 11.7 g/dL (12.0-15.0); Immature Granulocyte Absolute 0.02 K/mm3 (0.00-0.031); Immature Granulocyte Percent A 0.3 % (0-0.5); Lymphocytes Absolute Auto 1.73 K/mm3 (0.9-3.2); Mean Corpuscular HGB Conc 30.9 g/dl (32-36); Mean Corpuscular Hemoglobin 27.3 pg (26-34); Mean Corpuscular Volume 88.3 fl (80-100); Mean Platelet Volume 10.2 fl (7.4-10.4); Monocytes Absolute Auto 0.5 K/mm3 (0.1-0.6); Monocytes Percent Auto 7.7 % (2.6-8.5); Neutrophils Absolute Auto 4.2 K/mm3 (1.3-6.7); Neutrophils Percent Auto 63.4 % (45.5-73.1); Platelet Count Result 238 k/mm3 (150-375); Red Blood Count 4.29 M/mm3 (4.2-5.4); Red Cell Distribution Width 14.4 % (11.5-14.5); White Blood Count 6.7 K/mm3 (4.5-10.0)
[2022-01-04 12:26] LABS: Alanine Aminotransferase 18 U/L (6-35); Alkaline Phosphatase 108 U/L (38-126); Anion Gap 7 mmol/L (8-16); Aspartate Amino Transferase 30 U/L (14-36); Bilirubin,Total 0.3 mg/dL (0.2-1.3); Blood Urea Nitrogen 22 mg/dL (7-17); Calcium 8.6 mg/dL (8.4-10.2); Carbon Dioxide 29 mmol/L (22-30); Chloride 103 mmol/L (98-107); Estimated Glomerular Filt Rate > 60; Glucose 147 mg/dL (65-110); Lipase 45 U/L (23-300); Potassium 3.7 mmol/L (3.4-5.0); Prothrombin Time 13.2 Seconds (11.1-14.7); Sodium 139 mmol/L (137-145)
[2022-01-04 12:27] LABS: Partial Thromboplastin Time 27.4 SECONDS (22.3-36.8)
[2022-01-04 12:38] LABS: Troponin I < 0.012 ng/mL (0.000-0.034)
[2022-01-04] MEDS: KETOROLAC 15 MG/ML VIAL (*BKC) IV PUSH (12:43)
[2022-01-04] MEDS: diazePAM INJ (*CRX) 10 MG/2 ML SYRINGE 5 MG IV PUSH (12:44)
--- NOTE | 2022-01-04 13:18 | ED.GENADULT ---
HPI - General Adult General Chief complaint: Chest Pain Stated complaint: pain in neck after seeing chiropractornhung Time Seen by Provider: 01/04/22 12:04 History of Present Illness HPI narrative: Patient is a 76-year-old female who presents ER with pain in her neck. Began 2 days ago. Bilateral. Radiates into her chest. Worse with any type of movement of her head to the left right or up and down. Was seen by a chiropractor yesterday and received neck manipulation which did not improve her symptoms. She also reports that she was told she had 8 ribs out on the right side and that they replaced all of them. Patient denies any fall or injury. No fevers or chills or sweats. No numbness or tingling to the arms or legs. Patient tried taking hydrocodone without improvement. Related Data Home Medications Medication Instructions Recorded Confirmed dicyclomine 10 mg capsule 10 mg PO QID PRN Diarrhea 03/13/21 12/26/21 diphenoxylate-atropine 2.5 1 tablet PO QID PRN Diarrhea 03/13/21 12/26/21 mg-0.025 mg tablet ezetimibe 10 mg tablet 10 mg PO DAILY 03/13/21 12/26/21 magnesium oxide 800 mg PO QHS 03/13/21 12/26/21 sucralfate 100 mg/mL oral 30 ml PO QID PRN Stomach Upset 03/13/21 12/26/21 suspension benazepril 40 mg tablet 40 mg PO BID 07/26/21 12/26/21 aspirin 81 mg tablet,delayed 81 mg PO DAILY 10/16/21 12/26/21 release (Adult Aspirin Regimen) metformin 500 mg tablet 500 mg PO BID 10/23/21 12/26/21 albuterol sulfate 2.5 mg/3 mL 2.5 mg inhalation Q6H PRN 11/26/21 12/26/21 (0.083 %) solution for nebulization Shortness Of Breath budesonide-formoterol HFA 160 2 puff inhalation Q12H PRN 11/26/21 12/26/21 mcg-4.5 mcg/actuation aerosol Shortness Of Breath inhaler (Symbicort) ibandronate 150 mg tablet (Boniva) 150 mg PO MONTHLY 11/26/21 12/26/21 Allergies Allergy/AdvReac Type Severity Reaction Status Date / Time amlodipine AdvReac Intermediate Weakness, Verified 12/26/21 13:11 INCREASED HR hydrochlorothiazide AdvReac Intermediate palpatations/MUSC Verified 12/26/21 13:11 SPASMS Sulfa (Sulfonamide AdvReac Intermediate Nausea and Verified 12/26/21 13:11 Antibiotics) Vomiting trimethoprim AdvReac Intermediate Nausea and Verified 12/26/21 13:11 Vomiting terazosin AdvReac Mild Nausea and Verified 12/26/21 13:11 Vomiting Review of Systems Review of Systems: All systems reviewed & are unremarkable except as noted in HPI and below Constitutional: Constitutional: Denies chills and Denies fever(s) ENT: Denies nasal congestion and Denies sore throat Cardiovascular: Cardiovascular: Reports chest pain, Denies rapid heart rate and Reports radiating jaw, neck or arm pain Respiratory: Respiratory: Denies chest congestion, Denies cough, Denies dyspnea and Denies wheezing Gastrointestinal: Gastrointestinal: Denies abdominal pain, Denies nausea and Denies vomiting Musculoskeletal: Musculoskeletal: Reports arthralgias (left shoulder from recent surgery), Denies joint swelling and Reports muscle cramps Integumentary/Breasts: Skin/Breast: Denies erythema, Denies rash and Denies skin ulcer Neurologic: Denies syncope, Reports headache(s), Denies focal weakness and Denies numbness PMFSH Past Medical History Medical History (Updated 01/04/22 @ 16:06 by Malcom Gibson MD) Asthma Chronic GERD Diabetes mellitus Essential (primary) hypertension History of stress test (~2020) HTN (hypertension) Hypercholesterolemia LAURA (obstructive sleep apnea) Osteoarthritis Overweight (BMI 25.0-29.9) Right shoulder pain Tendinitis of left rotator cuff Thyroid nodule Surgical History Surgical History H/O partial thyroidectomy History of sleeve gastrectomy S/P rotator cuff repair Family History Family History Sibling Hypertension Family history of heart disease in male family member before
[2022-01-04 15:17] LABS: Troponin I < 0.012 ng/mL (0.000-0.034)
[2022-01-04] MEDS: MORPHINE SULFATE (*CRX) 4 MG/ML INJ IV PUSH (15:50)
--- NOTE | 2022-01-05 02:27 | PC.NURSE ---
LWBS APPROX [id number]
== END 2022-01-04 16:44 | disposition home or self-care (01) ==
PROVIDERS: Emergency Medicine; Emergency Provider Emergency Medicine; PCP Physician Assistant
DX: M62.830 Muscle spasm of back (principal); R07.89 Other chest pain; I10 Essential (primary) hypertension; E78.00 Pure hypercholesterolemia, unspecified; E11.9 Type 2 diabetes mellitus without complications; J45.909 Unspecified asthma, uncomplicated
CPT/HCPCS: 36415; 71046; 71275; 72125; 80053; 83690; 84484; 85025; 85610; 85730; 93005; 96374; 96375; 99284; J1885; J2270; J3360; Q9967

== ENCOUNTER 2022-03-04 11:07 | Outpatient (CLI) | payer MEDICARE, MEDICAID, SELFPAY ==
[2022-03-04 12:26] LABS: Appearance Urine Slightly Cloudy (Clear); Color Urine Dark Orange (Yellow)
[2022-03-04 12:27] LABS: Add Urine Microscopic? YES
[2022-03-04 12:31] LABS: RBC Urine 21-50 /hpf (0-2); WBC Clumps Urine Present /HPF; WBC Urine >75 /hpf (0-3)
== END 2022-03-04 11:08 | disposition home or self-care (01) ==
PROVIDERS: PCP Internal Medicine; Visit Provider Physician Assistant
DX: R30.0 Dysuria (principal)
CPT/HCPCS: 81001; 87077; 87086; 87186

== ENCOUNTER 2022-03-19 17:00 | Outpatient (CLI) | payer MEDICARE, MEDICAID, SELFPAY ==
--- NOTE | ~2022-03-19 | DEXA_ITS ---
Bone Density Report Name: KAVYA LICEA Age: 76 Sex: Female Ethnicity: White Date of : 1945 Indication: postmenopausal; screening for osteoporosis; height loss; inflammatory bowel disease; asthma or emphysema; hysterectomy; Referring Provider: ELDER BOWEN Study: Bone densitometry was performed. Exam Date: March 19, 2022 Accession number: [id number] Bone Density: Region BMD T-score Z-score Classification AP Spine(L2, L3, L4) 0.780 -2.7 -0.2 Osteoporosis Femoral Neck (Left) 0.580 -2.4 -0.4 Osteopenia Total Hip (Left) 0.745 -1.6 0.2 Osteopenia Femoral Neck (Right) 0.645 -1.8 0.2 Osteopenia Total Hip (Right) 0.813 -1.1 0.7 Osteopenia Total Hip Mean 0.779 -1.4 0.5 Osteopenia World Health Organization criteria for BMD impression classify patients as: Normal (T-score at or above -1.0), Osteopenia (T-score between -1.0 and -2.5), or Osteoporosis (T-score at or below -2.5). 10-year Fracture Risk: FRAX not reported because: Some T-score for Spine Total or Hip Total or Femoral Neck at or below -2.5 Treated for osteoporosis Clinical Information Provided by Patient: Is being treated for osteoporosis Has used the following medications: Boniva (i.e. ibandronate), Vitamin D, Calcium Has the following medical conditions: Asthma or Emphysema, Inflammatory bowel diseases, Hysterectomy, thyroidectomy Patient maximum height was 62 Menopause Age: 39 No regular weight bearing exercise Drinks caffeinated beverages Onset of menses at age 14 Number of children 6 Impression: The patient has osteoporosis, based on the Total Spine T-score. Discussion: It is important to ask patients whether they are taking their medications and to encourage continued and appropriate compliance with their osteoporosis therapies to reduce fracture risk. It is also important to review their risk factors and encourage appropriate calcium and vitamin D intakes, exercise, fall prevention and other lifestyle measures. Follow-Up: Consider a repeat BMD and Vertebral Fracture Assessment (VFA) exam in 2 years or sooner if medically necessary, to reassess this patient's status. Reported by: KASIE on 03/19/2022 5:22:00 PM. Reviewed, dictated and finalized at location ADiamante BUNN
== END 2022-03-19 17:01 | disposition home or self-care (01) ==
PROVIDERS: PCP Internal Medicine; Visit Provider Internal Medicine
DX: M81.0 Age-related osteoporosis without current pathological fracture (principal); M85.852 Other specified disorders of bone density and structure, left thigh; M85.851 Other specified disorders of bone density and structure, right thigh
CPT/HCPCS: 77080

== ENCOUNTER 2022-04-09 06:52 | Emergency (ER) | payer MEDICARE, MEDICAID, SELFPAY ==
--- NOTE | ~2022-04-09 | XR_ITS ---
EXAMINATION: XR chest 2V DATE: 04/09/2022 07:55 INDICATION: Chest pain TECHNIQUE: frontal and lateral views of the chest were obtained. COMPARISON: Chest radiograph and CT dated 01/04/2022 FINDINGS: Small calcified nodule at the left lung base and calcified left hilar and mediastinal lymph nodes con sistent with old granulomatous disease. The lungs are otherwise clear with no focal airspace opacitie s, pulmonary edema, pleural effusion or pneumothorax. The cardiomediastinal silhouette is normal. Pos t cystectomy clips in right upper quadrant. Mild thoracic kyphosis with chronic minimal to mild anter ior wedging of a few mid to lower thoracic vertebral bodies. Distal left clavicle excision. IMPRESSION: 1. No acute cardiopulmonary disease. Reviewed, dictated and finalized at location A.
[2022-04-09 06:53] VITALS: BP 154/65; PULSE 59; RESP 18; TEMP 36.7; O2SAT 97
--- NOTE | 2022-04-09 07:02 | ECG_ITS ---
Measurements Intervals [place] Rate: 59 P: 44 MS: 185 QRS: 37 QRSD: 90 T: 30 QT: 436 QTc: 434 Interpretive Statements SINUS BRADYCARDIA WITH FREQUENT VENTRICULAR PREMATURE COMPLEXES ABNORMAL ECG BORDERLINE ECG COMPARED TO ECG 01/04/2022 11:59:34 HEART RATE HAS DECREASED Electronically Signed On 04-09-2022 17:29:34 CDT by Alfred Calvillo M.D.
--- NOTE | 2022-04-09 07:03 | PC.NURSE ---
EMS gave 234mg ASA en route. Pt states shes had this pain before and was diagnosed with inflammation .
[2022-04-09 07:35] LABS: Basophils Percent Auto 0.6 % (0.2-1.2); Eosinophils Absolute Auto 0.1 K/mm3 (0-0.3); Eosinophils Percent Auto 1.6 % (0-4.4); Hematocrit 34.4 % (37.0-47.0); Hemoglobin 11.4 g/dL (12.0-15.0); Immature Granulocyte Absolute 0.01 K/mm3 (0.00-0.031); Immature Granulocyte Percent A 0.2 % (0-0.5); Lymphocytes Absolute Auto 1.77 K/mm3 (0.9-3.2); Lymphocytes Percent Auto 27.6 % (18.3-44.2); Mean Corpuscular HGB Conc 33.1 g/dl (32-36); Mean Corpuscular Hemoglobin 29.2 pg (26-34); Mean Corpuscular Volume 88.2 fl (80-100); Mean Platelet Volume 9.6 fl (7.4-10.4); Monocytes Absolute Auto 0.4 K/mm3 (0.1-0.6); Monocytes Percent Auto 5.9 % (2.6-8.5); Neutrophils Absolute Auto 4.1 K/mm3 (1.3-6.7); Neutrophils Percent Auto 64.1 % (45.5-73.1); Platelet Count Result 203 k/mm3 (150-375); Red Cell Distribution Width 16.9 % (11.5-14.5); White Blood Count 6.4 K/mm3 (4.5-10.0)
[2022-04-09 07:48] LABS: Alanine Aminotransferase 27 U/L (6-35); Albumin Level 3.9 g/dL (3.5-5.1); Alkaline Phosphatase 85 U/L (38-126); Anion Gap 7 mmol/L (8-16); Aspartate Amino Transferase 32 U/L (14-36); Bilirubin,Total 0.3 mg/dL (0.2-1.3); Blood Urea Nitrogen 16 mg/dL (7-17); Calcium 9.1 mg/dL (8.4-10.2); Carbon Dioxide 25 mmol/L (22-30); Chloride 105 mmol/L (98-107); Estimated CRCL calculation 60 ml/min; Estimated Glomerular Filt Rate > 60; Glucose 117 mg/dL (65-110); Lipase 83 U/L (23-300); Sodium 137 mmol/L (137-145)
[2022-04-09] MEDS: KETOROLAC 30 MG/ML VIAL (*BKC) (07:56)
[2022-04-09 07:59] LABS: Troponin I < 0.012 ng/mL (0.000-0.034)
--- NOTE | 2022-04-09 08:05 | ED.CHESTPAIN ---
HPI - Chest Pain General Chief Complaint: Chest Pain Stated Complaint: cp and shoulder pain Time Seen by Provider: 04/09/22 07:02 History of Present Illness HPI narrative: Patient is a 76-year-old female who presents ER with aching chest and back pain. Ongoing over the last 2 weeks but worsening over the last 4 days. No exertional chest pain or shortness of breath. No runny nose or sore throat or productive cough. Denies fevers or chills. Patient was seen for similar symptoms several months back. Pain worsens with palpation and physical movements like leaning forward. She has not tried any oral pain medication at home. Outside medical record does not show recent prescriptions for pain medication. Related Data Home Medications Medication Instructions Recorded Confirmed dicyclomine 10 mg capsule 10 mg PO QID PRN Diarrhea 03/13/21 02/27/22 diphenoxylate-atropine 2.5 1 tablet PO QID PRN Diarrhea 03/13/21 02/27/22 mg-0.025 mg tablet ezetimibe 10 mg tablet 10 mg PO DAILY 03/13/21 02/27/22 magnesium oxide 800 mg PO QHS 03/13/21 02/27/22 sucralfate 100 mg/mL oral 30 ml PO QID PRN Stomach Upset 03/13/21 02/27/22 suspension aspirin 81 mg tablet,delayed 81 mg PO DAILY 10/16/21 02/27/22 release (Adult Aspirin Regimen) albuterol sulfate 2.5 mg/3 mL 2.5 mg inhalation Q6H PRN 11/26/21 02/27/22 (0.083 %) solution for nebulization Shortness Of Breath budesonide-formoterol HFA 160 2 puff inhalation Q12H PRN 11/26/21 02/27/22 mcg-4.5 mcg/actuation aerosol Shortness Of Breath inhaler (Symbicort) ibandronate 150 mg tablet (Boniva) 150 mg PO MONTHLY 11/26/21 02/27/22 Allergies Allergy/AdvReac Type Severity Reaction Status Date / Time amlodipine AdvReac Intermediate Weakness, Verified 04/09/22 07:02 INCREASED HR hydrochlorothiazide AdvReac Intermediate palpatations/MUSC Verified 04/09/22 07:02 SPASMS Sulfa (Sulfonamide AdvReac Intermediate Nausea and Verified 04/09/22 07:02 Antibiotics) Vomiting trimethoprim AdvReac Intermediate Nausea and Verified 04/09/22 07:02 Vomiting terazosin AdvReac Mild Nausea and Verified 04/09/22 07:02 Vomiting Review of Systems Review of Systems: All systems reviewed & are unremarkable except as noted in HPI and below Constitutional: Constitutional: Denies chills and Denies fever(s) Cardiovascular: Cardiovascular: Reports chest pain, Denies rapid heart rate and Denies radiating jaw, neck or arm pain Respiratory: Respiratory: Denies cough, Denies dyspnea and Denies wheezing Gastrointestinal: Gastrointestinal: Denies nausea and Denies vomiting Musculoskeletal: Musculoskeletal: Reports back pain, Reports myalgias, Denies arthralgias and Denies joint swelling Integumentary/Breasts: Skin/Breast: Denies erythema and Denies rash PMFSH Past Medical History Medical History (Updated 04/09/22 @ 09:29 by Malcom Gibson MD) Asthma Chronic GERD Diabetes mellitus Essential (primary) hypertension History of stress test (~2020) HTN (hypertension) Hypercholesterolemia LAURA (obstructive sleep apnea) Osteoarthritis Overweight (BMI 25.0-29.9) Right shoulder pain Tendinitis of left rotator cuff Thyroid nodule Surgical History Surgical History (Updated 02/27/22 @ 14:00 by Beatriz Neri) H/O partial thyroidectomy History of repair of left rotator cuff (~11/30/21) (Arthroscopic) w/Subacromial Decompression; Biceps Tenodesis, Distal Clavicle Excision History of sleeve gastrectomy Family History Family History Sibling Hypertension Family history of heart disease in male family member before age 55, Onset Age: 68 Patient's brother is Acute myocardial infarction, Onset Age: 667 Cerebrovascular accident Patient's brother is in good health Family history of Alzheimer's disease Family history of dementia Father Family history of heart disease in male family member before age 55, Onset Ag
[2022-04-09 08:41] LABS: INR 1.1; Prothrombin Time 13.4 Seconds (11.1-14.7)
[2022-04-09 08:55] LABS: Partial Thromboplastin Time 27.5 SECONDS (22.3-36.8)
--- NOTE | 2022-04-09 09:15 | PC.NURSE ---
pt sleeping comfortably in stretcher.
[2022-04-09 09:37] VITALS: BP 140/52; PULSE 61; RESP 16; TEMP 36.8; O2SAT 99
== END 2022-04-09 09:39 | disposition home or self-care (01) ==
PROVIDERS: Emergency Provider Emergency Medicine; PCP Internal Medicine
DX: R07.89 Other chest pain (principal); I10 Essential (primary) hypertension; J45.909 Unspecified asthma, uncomplicated; E11.9 Type 2 diabetes mellitus without complications; K21.9 Gastro-esophageal reflux disease without esophagitis; E78.00 Pure hypercholesterolemia, unspecified; G47.33 Obstructive sleep apnea (adult) (pediatric); Z79.51 Long term (current) use of inhaled steroids; Z79.82 Long term (current) use of aspirin; Z79.83 Long term (current) use of bisphosphonates; Z98.84 Bariatric surgery status
CPT/HCPCS: 36415; 71046; 80053; 83690; 84484; 85025; 85610; 85730; 93005; 96374; 99284; J1885

== ENCOUNTER 2022-06-21 08:12 | Outpatient (CLI) | payer MEDICARE, MEDICAID, SELFPAY ==
--- NOTE | ~2022-06-21 | XR_ITS ---
Left Shoulder Technique: AP and scapular Y views were obtained. Clinical History: Pain COMPARISON: 02/27/2022 and 01/15/2021 Findings: No fracture or dislocation is seen. Osseous alignment is anatomic. The glenohumeral and acr omioclavicular joint spaces are unchanged from most recent prior exam. Suggestion of interval surgery /acromioclavicular decompression since 01/15/2021. Soft tissues are unremarkable. Impression: No acute abnormality. No change since 02/27/2022. Suggestion of surgical acromioclavicular decompressi on since 01/15/2021. Correlate with any surgical history. Reviewed, dictated and finalized at location [] TOP PUBLISHER Impression: No acute abnormality. No change since 02/27/2022. Suggestion of surgical acromio clavicular decompression since 01/15/2021. Correlate with any surgical history.
== END 2022-06-21 08:13 | disposition home or self-care (01) ==
PROVIDERS: PCP Internal Medicine; Visit Provider Physician Assistant
DX: M25.512 Pain in left shoulder (principal)
CPT/HCPCS: 73030

== ENCOUNTER 2022-07-03 10:18 | Outpatient (CLI) | payer MEDICARE, MEDICAID, SELFPAY ==
[2022-07-03 10:47] LABS: Add Urine Microscopic? YES; Appearance Urine Slightly Cloudy (Clear); Bilirubin Urine Negative (Negative); Blood Urine Negative (Negative); Color Urine Light Yellow (Yellow); Glucose Urine UA Negative (Negative); Ketones Urine Negative (Negative); Leukocyte Esterase Ur 1+ LEU/UL (NEGATIVE); Nitrate Urine Positive (Negative); Protein Urine Negative (Negative); Specific Grav Ur 1.015 (1.001-1.035); Urobilinogen Urine 0.2 mg/dL (<2.0); pH Urine 6.5 (5.0-9.0)
[2022-07-03 10:59] LABS: Bacteria Urine Trace /hpf; Squamous Epithelial Cell Urine Rare /hpf (Few); WBC Urine 21-30 /hpf (0-3)
== END 2022-07-03 10:19 | disposition home or self-care (01) ==
PROVIDERS: PCP Internal Medicine; Visit Provider Physician Assistant
DX: R30.0 Dysuria (principal)
CPT/HCPCS: 81001; 87077; 87086; 87186

== ENCOUNTER 2022-08-01 07:55 | Emergency (ER) | payer MEDICARE, MEDICAID, SELFPAY ==
[2022-08-01] VITALS (19 sets, daily range): BP systolic 99–147; BP diastolic 50–74; PULSE 52–80; RESP 12–20; TEMP 36.8; O2SAT 93–100
--- NOTE | ~2022-08-01 | CT_ITS ---
CT Abdomen and Pelvis with contrast. History: Abdominal pain. Spiral CT of the abdomen and pelvis was performed after the administration of intravenous contrast. 1 00 cc of Omnipaque 350 was administered intravenously without complication. Dose reduction technique was used on this scan by utilizing automated exposure control and iterative reconstruction technique. The dose-length product (DLP) was 666.17 mGy-cm. COMPARISON: 05/22/2012 Findings: Scans through the lung bases demonstrate stable calcified left basilar granuloma. The liver, spleen, pancreas, adrenals and kidneys are within normal limits. Cholecystectomy clips are present. Prominent common bile duct is probably related to prior cholecystectomy. No evidence of aor tic aneurysm. No lymphadenopathy is seen. There is no evidence of bowel obstruction. There is no evidence to suggest acute appendicitis or dive rticulitis. Postsurgical change noted at the GE junction region and gastric fundus. Images through the pelvis were performed. Urinary bladder is unremarkable. Patient is post hysterecto my. No pelvic mass identified. No ascites is seen. Impression: No acute abnormality. Status post cholecystectomy, hysterectomy, and prior bariatric surgery versus hiatal hernia repair. C orrelate with surgical history. Dilated common bile duct is presumably related to prior cholecystectomy. Reviewed, dictated and finalized at location . ER TECHNICIAN Impression: No acute abnormality. Status post cholecystectomy, hysterectomy, and prior bariatric surgery versus h iatal hernia repair. Correlate with surgical history. Dilated common bile duct is presumably related to prior cholecystectomy.
--- NOTE | ~2022-08-01 | CT_ITS ---
EXAMINATION: CT thoracic spine wo con DATE: 08/01/2022 09:08 INDICATION: Back pain TECHNIQUE: Computed tomography (CT) of the thoracic spine was performed without intravenous contrast. Automated exposure control and iterative reconstruction technique were employed. The dose-length pro duct was 1220.42 mGy-cm. COMPARISON: Chest CT dated 06/11/2012 FINDINGS: Mild thoracic kyphosis with chronic mild anterior wedging at T6-T9. There is moderate disc height loss at C6-C7, T5-T6, T7-T8 and T10-T11 and mild disc height loss at the remaining levels from C7-T1 through T9-T10. Partially calcified left paracentral disc protrusion at T9-T10 result in mild central canal stenosis. Suggestion of a small central disc protrusion with additional mild central ca nal stenosis at T7-T8. The remainder of the thoracic central canal appears patent. Multilevel thoraci c facet osteoarthritis, moderate severity in the upper thoracic spine recommend is to mild neural for aminal stenosis at a few levels on both the left and right decubitus into mild in the mid and lower t horacic spine. Mild basilar and dependent predominant atelectasis in both lungs likely related to at least partial expiratory phase of imaging. Calcified left lower lobe nodule, calcified left hilar and mediastinal lymph nodes and a few small splenic calcific lesions, all consistent with old granulomat ous disease. Visualized portion of the heart suggests normal size. Atherosclerotic coronary artery ca lcifications and aortic valve calcification. Thoracic aorta is normal in caliber. Postoperative fletcher e of prior gastric bypass procedure. Common bile duct is dilated to 11 mm which is likely related to prior cholecystectomy with surgical clips at the gallbladder fossa. IMPRESSION: 1. Moderate thoracic spondylosis and chronic mild anterior wedging at T6-T9. No acute osseous abnorma lity. Reviewed, dictated and finalized at location L. O PLAYER MECHANIC IMPRESSION: 1. Moderate thoracic spondylosis and chronic mild anterior wedging at T6-T9. No acute osseous abnormality.
[2022-08-01 08:30] LABS: Appearance Urine Clear (Clear); Bilirubin Urine Negative (Negative); Blood Urine Negative (Negative); Color Urine Yellow (Yellow); Glucose Urine UA Negative (Negative); Ketones Urine Negative (Negative); Leukocyte Esterase Ur Trace LEU/UL (Negative); Nitrate Urine Negative (Negative); Protein Urine Negative (Negative); Specific Grav Ur 1.015 (1.001-1.035); Urobilinogen Urine 0.2 mg/dL (<2.0); pH Urine 5.5 (5.0-9.0)
[2022-08-01 08:33] LABS: Basophils Absolute Auto 0.1 K/mm3 (0.0-0.1); Basophils Percent Auto 1.1 % (0.2-1.2); Eosinophils Absolute Auto 0.1 K/mm3 (0-0.3); Eosinophils Percent Auto 1.7 % (0-4.4); Hematocrit 35.3 % (37.0-47.0); Hemoglobin 11.4 g/dL (12.0-15.0); Immature Granulocyte Absolute 0.01 K/mm3 (0.00-0.031); Immature Granulocyte Percent A 0.2 % (0-0.5); Lymphocytes Absolute Auto 1.45 K/mm3 (0.9-3.2); Lymphocytes Percent Auto 30.5 % (18.3-44.2); Mean Corpuscular HGB Conc 32.3 g/dl (32-36); Mean Corpuscular Hemoglobin 29.5 pg (26-34); Mean Corpuscular Volume 91.5 fl (80-100); Mean Platelet Volume 10.3 fl (7.4-10.4); Monocytes Absolute Auto 0.4 K/mm3 (0.1-0.6); Monocytes Percent Auto 8.2 % (2.6-8.5); Neutrophils Absolute Auto 2.8 K/mm3 (1.3-6.7); Neutrophils Percent Auto 58.3 % (45.5-73.1); Platelet Count Result 227 k/mm3 (150-375); Red Blood Count 3.86 M/mm3 (4.2-5.4); Red Cell Distribution Width 13.2 % (11.5-14.5); White Blood Count 4.8 K/mm3 (4.5-10.0)
[2022-08-01 08:34] LABS: Bacteria Urine Trace /hpf; Mucus Urine Rare /lpf; RBC Urine 0-2 /hpf (0-2); Squamous Epithelial Cell Urine Rare /hpf (Few); WBC Urine 0-3 /hpf
[2022-08-01 08:38] LABS: Add Urine Microscopic? YES
[2022-08-01 08:45] LABS: Alanine Aminotransferase 22 U/L (6-35); Albumin Level 3.9 g/dL (3.5-5.1); Alkaline Phosphatase 84 U/L (38-126); Anion Gap 8 mmol/L (8-16); Aspartate Amino Transferase 34 U/L (14-36); Bilirubin,Total 0.5 mg/dL (0.2-1.3); Blood Urea Nitrogen 17 mg/dL (7-17); Calcium 8.4 mg/dL (8.4-10.2); Carbon Dioxide 25 mmol/L (22-30); Chloride 107 mmol/L (98-107); Estimated CRCL calculation 47 ml/min; Estimated Glomerular Filt Rate > 60; Glucose 71 mg/dL (65-110); Lipase 110 U/L (23-300); Potassium 4.1 mmol/L (3.4-5.0); Sodium 140 mmol/L (137-145)
--- NOTE | 2022-08-01 10:09 | ECG_ITS ---
Measurements Intervals [place] Rate: 55 P: 38 PA: 203 QRS: 44 QRSD: 89 T: 30 QT: 463 QTc: 443 Interpretive Statements SINUS BRADYCARDIA BASELINE ARTIFACT- I, II, AVR, AVL, AVF, V1 BORDERLINE ECG COMPARED TO ECG 04/09/2022 07:09:45 NO SIGNIFICANT CHANGES Electronically Signed On 08-01-2022 10:33:35 ACID CUTTER by Hal Cambpell D.O.
[2022-08-01 11:42] LABS: Troponin I < 0.012 ng/mL (0.000-0.034)
--- NOTE | 2022-08-01 11:48 | ED.GENADULT ---
HPI - General Adult General Chief complaint: Urogenital-Female Stated complaint: flank pain Time Seen by Provider: 08/01/22 08:02 Source: RN notes reviewed History of Present Illness HPI narrative: Patient presents emergency department from home for multiple complaints. The patient's primary complaint is bilateral lower back pain that radiates around into her abdomen states that she has had chronic pain in her lower to middle back since she fell approximately 3 months ago she states that the pain starts at the base of her ribs and goes down into her lower back she states that this morning it was worse with movement and not so she came to the emergency department states she is also been having some intermittent cramping pain in her lower abdomen states she has a history of recurrent urinary tract infections and is supposed to be seeing the urologist tomorrow. Patient denies any fevers or chills she denies any chest pain or shortness of breath she does note that she has had chronic left shoulder pain since she fell states she has been seen by her PCP and had x-rays were negative but believes she needs an MRI and states that she has seen Dr. Chowdary for this but has not had an MRI she denies any new trauma or injury to the left arm Related Data Home Medications Medication Instructions Recorded Confirmed dicyclomine 10 mg capsule 10 mg PO QID PRN Diarrhea 03/13/21 05/03/22 diphenoxylate-atropine 2.5 1 tablet PO QID PRN Diarrhea 03/13/21 05/03/22 mg-0.025 mg tablet ezetimibe 10 mg tablet 10 mg PO DAILY 03/13/21 05/03/22 sucralfate 100 mg/mL oral 30 ml PO QID PRN Stomach Upset 03/13/21 05/03/22 suspension aspirin 81 mg tablet,delayed 81 mg PO DAILY 10/16/21 05/03/22 release (Adult Aspirin Regimen) albuterol sulfate 2.5 mg/3 mL 2.5 mg inhalation Q6H PRN 11/26/21 05/03/22 (0.083 %) solution for nebulization Shortness Of Breath budesonide-formoterol HFA 160 2 puff inhalation Q12H PRN 11/26/21 05/03/22 mcg-4.5 mcg/actuation aerosol Shortness Of Breath inhaler (Symbicort) ibandronate 150 mg tablet (Boniva) 150 mg PO MONTHLY 11/26/21 05/03/22 Allergies Allergy/AdvReac Type Severity Reaction Status Date / Time amlodipine AdvReac Intermediate Weakness, Verified 06/14/22 08:55 INCREASED HR hydrochlorothiazide AdvReac Intermediate palpatations/MUSC Verified 06/14/22 08:55 SPASMS Sulfa (Sulfonamide AdvReac Intermediate Nausea and Verified 06/14/22 08:55 Antibiotics) Vomiting trimethoprim AdvReac Intermediate Nausea and Verified 06/14/22 08:55 Vomiting terazosin AdvReac Mild Nausea and Verified 06/14/22 08:55 Vomiting Review of Systems Review of Systems: Gen.: Denies fevers or chills ENT: Denies congestion Respiratory: Denies shortness of breath or cough CV: Denies chest pain or palpitations GI: Reports lower abdominal pain denies nausea vomiting or diarrhea Musculoskeletal: HPI Neuro: Denies numbness, tingling, weakness or focal weakness Skin: Denies rash Except as documented, all other systems reviewed and negative PMF Past Medical History Medical History Asthma Chronic GERD Diabetes mellitus Essential (primary) hypertension History of stress test (~2020) HTN (hypertension) Hypercholesterolemia LAURA (obstructive sleep apnea) Osteoarthritis Overweight (BMI 25.0-29.9) Right shoulder pain Tendinitis of left rotator cuff Thyroid nodule Surgical History Surgical History H/O partial thyroidectomy History of repair of left rotator cuff (~11/30/21) (Arthroscopic) w/Subacromial Decompression; Biceps Tenodesis, Distal Clavicle Excision History of sleeve gastrectomy Family History Family History Sibling Hypertension Family history of heart disease in male family member before age 55, Onset Age: 68 Patient's brother is de
== END 2022-08-01 12:00 | disposition home or self-care (01) ==
PROVIDERS: Emergency Provider Emergency Medicine; PCP Internal Medicine
DX: M54.50 Low back pain, unspecified (principal); R10.30 Lower abdominal pain, unspecified; J45.909 Unspecified asthma, uncomplicated; E11.9 Type 2 diabetes mellitus without complications; E78.00 Pure hypercholesterolemia, unspecified; K21.9 Gastro-esophageal reflux disease without esophagitis; G47.33 Obstructive sleep apnea (adult) (pediatric); M19.90 Unspecified osteoarthritis, unspecified site; E89.0 Postprocedural hypothyroidism; E66.3 Overweight; Z68.31 Body mass index [BMI] 31.0-31.9, adult; Z79.82 Long term (current) use of aspirin; M47.816 Spondylosis without myelopathy or radiculopathy, lumbar region; Z98.84 Bariatric surgery status; R00.1 Bradycardia, unspecified; Z90.710 Acquired absence of both cervix and uterus; Z79.84 Long term (current) use of oral hypoglycemic drugs
CPT/HCPCS: 36415; 72128; 74177; 80053; 81001; 83690; 84484; 85025; 93005; 96365; 99284; J0131; Q9967

== ENCOUNTER 2022-08-23 14:44 | Outpatient (CLI) | payer MEDICARE, MEDICAID, SELFPAY ==
--- NOTE | ~2022-08-23 | US_ITS ---
EXAMINATION: US art doppler w press LE DATE: 08/23/2022 16:46 [facility] [employer] INDICATION: Peripheral vascular disease. TECHNIQUE: Segmental pressures and plethysmographic and Doppler waveforms of the brachial and lower e xtremity arteries were obtained. COMPARISON: None. FINDINGS: Right and left brachial artery pressures of 99 mm Hg and 108 mm Hg, respectively, are concordant (nor mal difference <= 30 mmHg). The right high-thigh pressure index is 1.44 (normal > 1.2). The right ankle-brachial index (PARTHA) is 1 .35 (normal >= 0.9-1.0). The right great toe-brachial index (TBI) is 0.39 (normal >= 0.60). The right lower extremity segmental pressure gradients are increased below the right ankle (normal gradients < = 20-30 mmHg between adjacent levels on the same leg or the same levels on the two legs). Arterial Do ppler waveforms are biphasic. The left high-thigh pressure index is 1.29. The left PARTHA is 1.27. The left TBI is 0.75. The left lowe r extremity segmental pressure gradients are normal. Arterial Doppler waveforms are biphasic. IMPRESSION: 1. Normal left ankle and toe brachial indices. 2: Normal right ankle-brachial index. Diminished right toe brachial index consistent with moderate p eripheral arterial disease. Reviewed, dictated and finalized at location A. AND MAKER IMPRESSION: 1. Normal left ankle and toe brachial indices. 2: Normal right ankle-brachial index. Diminished right toe brachial index cons istent with moderate peripheral arterial disease.
== END 2022-08-23 14:45 | disposition home or self-care (01) ==
LOC: ANHIMG 14:48
PROVIDERS: PCP Internal Medicine; Visit Provider Physician Assistant
DX: I73.9 Peripheral vascular disease, unspecified (principal)
CPT/HCPCS: 93923

== ENCOUNTER 2023-05-14 16:05 | Outpatient (CLI) | payer MEDICARE, MEDICAID, SELFPAY ==
--- NOTE | ~2023-05-14 | XR_ITS ---
EXAMINATION: XR chest 2V DATE: 05/14/2023 16:25 INDICATION: Cough. Congestion. TECHNIQUE: Frontal and lateral views of the chest were obtained. COMPARISON: Chest 2 views 04/09/2022 FINDINGS: A calcified left lung nodule and calcified left hilar and mediastinal lymph nodes are consi stent with old granulomatous disease. There is no pneumonia, pleural effusion, or pneumothorax. The h eart size is normal. Surgical clips in the right upper quadrant are likely from cholecystectomy. Ther e is mild chronic anterior wedging of multiple thoracic vertebral bodies. IMPRESSION: 1. No acute cardiopulmonary disease. Reviewed, dictated and finalized at location E. [employer]PERATOR
== END 2023-05-14 16:06 | disposition home or self-care (01) ==
PROVIDERS: PCP Physician Assistant; Visit Provider Physician Assistant
DX: R05.8 Other specified cough (principal); I10 Essential (primary) hypertension; J45.909 Unspecified asthma, uncomplicated
CPT/HCPCS: 71046